=== PATIENT | male | born 1960 | race Two or more races ===

== ENCOUNTER → 2025-03-16 14:02 | Outpatient (REF) | payer OTHER, SELFPAY | LOC: EMG 14:02 | PROVIDERS: ATTENDING PHYSICIAN Physical Medicine & Rehabilitation; FAMILY PHYSICIAN Nurse Practitioner | DX: R20.0 Anesthesia of skin (principal); M25.522 Pain in left elbow; M48.02 Spinal stenosis, cervical region | CPT/HCPCS: 95886; 95911 ==